=== PATIENT | female | born 1985 ===

== ENCOUNTER → 2020-08-23 | Outpatient (CLI) | payer BC ==
--- NOTE | 2020-08-23 15:37 | RAD ---
Left lower extremity venous reflux evident. HISTORY: Left leg pain and low. FINDINGS: No DVT evident by grayscale sonography with compressibility, patent color Doppler blood bernice w and augmentation of blood flow the left common femoral vein, profunda femoral vein, superficial fem oral vein and popliteal vein. No DVT evident of the posterior tibial and peroneal veins in the calf w ith patent color Doppler blood flow. At the palpable lump of the anterior calf there is a subcutaneou s oval hypoechoic lesion just anterior of the muscles of the anterior compartment, this lesion measur es 1.2 x 0.8 x 1.6 cm no internal vascularity documented. IMPRESSION: 1. Negative left leg for DVT. 2. Anterior calf demonstrates a 1.6 x 1.2 x 0.8 cm oval hypoechoic subcutaneous soft tissue mass with in the fat. This is indeterminate. Follow-up in 3 months may be of benefit to document that this reso lves. If this does not resolve over time or develops other worrisome features such as enlargement or pain consider further assessment with MR imaging. Electronically signed by: Doug Amor MD (08/23/2020 3:35 PM) [facility]
== END ==
LOC: US 14:32
PROVIDERS: ATTEND Specialist
DX: R22.42 Localized swelling, mass and lump, left lower limb (principal); M79.605 Pain in left leg
CPT/HCPCS: 93971

== ENCOUNTER 2021-03-07 18:34 | Emergency (ER) | payer BC ==
[~2021-03-07] VITALS: Ht 160 cm; Wt 79.5 kg
[2021-03-07 18:45] VITALS: BP 122/75
[2021-03-07] MEDS ORDERED: IBUP600T16 PO (19:18)
--- NOTE | 2021-03-07 19:19 | PHYS DOC ---
General Adult EDM: Chief Complaint: INSECT BITE Problems: (1) Visit for wound check (MIN MARTINEZ) HPI: HPI: Patient is a 35 year old female who presents with an insect bite to the left lower extremity. Patient states on (03/02/2021) he noticed a red itchy bumps to the posterior aspect of her central calf. She states that since that time, it no longer itches, it was warm for about 1 day, and is now flat and looks like a bruise. She states she started to have pain from her knee down this morning. She describes the pain as cramping or like "muscle soreness" at 6/10. She reports additional complaints of body aches, chills, diaphoresis at night. She also had some abdominal pain last night. This morning, she worked for about 2 hours, and then felt too tired. She napped the rest of the day. Patient denies fever and any discharge from the wound. (MIN MARTINEZ) Review of Systems: Review of Systems: ROS negative except as mentioned in HPI. (MIN MARTINEZ) Physical Exam: PE: Constitutional: Well developed, well nourished, no acute distress, non-toxic appearance. [] HENT: Normocephalic, atraumatic, bilateral external ears normal, oropharynx moist, no oral exudates, nose normal. [] Eyes: PERRLA, EOMI, conjunctiva normal, no discharge. [] Neck: Normal range of motion, no tenderness, supple, no stridor. [] Cardiovascular:Heart rate regular rhythm, no murmur [] Lungs & Thorax: Bilateral breath sounds clear to auscultation [] Abdomen: Bowel sounds normal, soft, no tenderness, no masses, no pulsatile masses. [] Skin: Posterior aspect of left lower extremity has a 3 cm in diameter area of ecchymosis. There is no edema or obvious erythema surrounding the lesion. No other lesions or rash present. Back: No tenderness, no CVA tenderness. [] Extremities: No tenderness, no cyanosis, no clubbing, ROM intact, no edema. [] Neurologic: Alert and oriented X 3, normal motor function, normal sensory function, no focal deficits noted. [] Psychologic: Affect normal, judgement normal, mood normal. [] (MIN MARTINEZ) EKG: EKG: [] (MIN MARTINEZ) Radiology/Procedures: Radiology/Procedures: [] (MIN MARTINEZ) Heart Score: C/O Chest Pain: No (MIN MARTINEZ) Course & Med Decision Making: Course & Med Decision Making Pertinent Labs and Imaging studies reviewed. (See chart for details) Course of insect bite progression and treatment was discussed with the patient. Monitoring the diameter of the area of bruising was discussed with the patient. She knows to return to the emergency department if that area grows rapidly, or if she notices any signs of infection (increased erythema, fever, purulent discharge). Patient is comfortable being given 600 mg ibuprofen prescription and alternating with Tylenol for body pains. (MIN MARTINEZ) Dragon Disclaimer: Dragon Disclaimer: This electronic medical record was generated, in whole or in part, using a voice recognition dictation system. (MIN MARTINEZ) Departure Departure: Impression: Primary Impression: Visit for wound check Disposition: HOME / SELF CARE / HOMELESS Condition: STABLE Referrals: DOMINGO CORNEJO MD (PCP) Patient Instructions: Insect Bite, [id number], Wound Care, [id number] Scripts Ibuprofen (IBUPROFEN) 600 Mg Tablet 600 MG PO Q6HRS for pain for 5 Days, #20 TAB Take 1 tablet by mouth every 6 hours as needed for pain. Prov: MIN MARTINEZ 03/07/21 Attending Signature Attending Signature I have participated in the care of this patient and I have reviewed and agree with all pertinent clinical information above including history, exam, and recommendations. (DENIZ CHANDRA MD) Attending Signature Attending Signature I have participated in the care of this patient and I have reviewed and agree with all pertinent clinical information above including history, exam, and recommendations. (DENIZ CHANDRA MD) MIN MARTINEZ Mar 07, 2021 19:19 DENIZ CHANDRA MD Mar 10, 2021 18:08
== END 2021-03-07 19:30 | disposition home or self-care (01) ==
LOC: ER 18:34
DX: Z48.00 Encounter for change or removal of nonsurgical wound dressing (principal); S80.12XA Contusion of left lower leg, initial encounter; R10.9 Unspecified abdominal pain; W57.XXXA Bitten or stung by nonvenomous insect and other nonvenomous arthropods, initial encounter; Y93.89 Activity, other specified; Y92.89 Other specified places as the place of occurrence of the external cause; Y99.8 Other external cause status
CPT/HCPCS: 99282